=== PATIENT | female | born 1960 | race Caucasian/White ===

== ENCOUNTER 2020-02-26 17:40 | Emergency (ER) | payer BC ==
[~2020-02-26] VITALS: Ht 170.2 cm; Wt 52.2 kg
[2020-02-26 18:01] VITALS: BP_SYST 126
--- NOTE | 2020-02-26 18:07 | NUR ---
Patient triaged and placed in waiting room. VSS and patient appears in no acute distress at this time. Accompanied by SON, awaiting available bed, and MD notified of need for MSE.
[2020-02-26] MEDS ORDERED: KETOROLAC TROMETHAMINE 60 MG/2 ML VIAL IM ONE (18:15)
--- NOTE | 2020-02-26 19:55 | NUR ---
Patient to [facility] for evaluation. Side rails up.
--- NOTE | 2020-02-26 20:00 | NUR ---
Patient complaining of pain to lower back shooting down left leg since last night. History of sciatica. Pain 06/05. Patient is legally blind accompanied by son. No other complaints/injuries per patient or as noted. Will continue to monitor.
--- NOTE | 2020-02-26 20:10 | NUR ---
ER Dr. Floyd at bedside examining patient.
[2020-02-26] MEDS ORDERED: ONDANSETRON 4 MG ODT TAB PO ONE (20:15)
[2020-02-26] MEDS ORDERED: MORPHINE 4 MG/ML INJ. SYRINGE IM ONE (20:15)
[2020-02-26 21:20] VITALS: BP_SYST 116
--- NOTE | 2020-02-26 21:20 | NUR ---
Patient given written and verbal discharge instructions and verbalizes understanding. ER MD discussed with patient the results and treatment provided. Patient in stable condition. ID arm band removed. Rx of Naprosyn given. Patient educated on pain management and to follow up with PMD. Pain Scale 1/10 Opportunity for questions provided and answered. Medication side effect fact sheet provided.
== END 2020-02-26 21:20 | disposition home or self-care (01) ==
LOC: SED 17:40
DX: M54.5 Low back pain (principal); M54.10 Radiculopathy, site unspecified; F17.210 Nicotine dependence, cigarettes, uncomplicated; Z88.0 Allergy status to penicillin; Z88.5 Allergy status to narcotic agent
CPT/HCPCS: 96372; 99284; J1885; J2270; Q0162

== ENCOUNTER 2021-07-05 10:05 | Emergency (ER) | payer MEDICARE, MEDICAID, SELFPAY ==
[~2021-07-05] VITALS: Ht 170.2 cm; Wt 68.0 kg
[2021-07-05 10:55] VITALS: BP_SYST 119
[2021-07-05 11:00] LABS: BASOPHILS # (AUTO) 0.1 K/uL (0.0-0.2); EOSINOPHILS # (AUTO) 0.3 K/uL (0.0-0.4); EOSINOPHILS % (AUTO) 3.6 % (0.0-4.0); HEMATOCRIT 40.3 % (36-48); LYMPHOCYTES # (AUTO) 2.1 K/uL (1.0-5.5); LYMPHOCYTES % (AUTO) 29.3 % (20.5-51.5); MEAN CORPUSCULAR HEMOGLOBIN 32 pg (27-31); MEAN CORPUSCULAR HGB CONC 35 % (32-36); MEAN CORPUSCULAR VOLUME 92 fL (79.0-98.0); MONOCYTES # (AUTO) 0.5 K/uL (0.0-1.0); MONOCYTES % (AUTO) 7.4 % (1.7-9.3); NEUTROPHILS # (AUTO) 4.2 K/uL (1.8-7.7); NEUTROPHILS % (AUTO) 58.7 % (40.0-70.0); PLATELET COUNT (AUTO) 243 K/uL (130-430); RED CELL DISTRIBUTION WIDTH 14.1 % (9.0-15.0); WHITE BLOOD COUNT (AUTO) 7.2 K/uL (4.8-10.8)
[2021-07-05 11:19] LABS: CALCIUM 9.8 mg/dL (8.4-11.0); CREATININE 0.84 mg/dL (0.55-1.30); POTASSIUM 3.7 mmol/L (3.5-5.1)
[2021-07-05 11:21] LABS: INR 0.9 (0.8-1.2); PROTHROMBIN TIME 9.9 SECS (9.5-12.5)
[2021-07-05 11:24] LABS: TOTAL BILIRUBIN 0.3 mg/dL (0.0-1.0)
[2021-07-05] MEDS ORDERED: IPRATROPIUM BROM 0.5 MG/2.5 ML VIAL.NEB (ATROVENT) INH ONE (12:45)
[2021-07-05] MEDS ORDERED: ALBUTEROL SULFATE 0.083% 2.5 MG/3 ML VIAL.NEB INH ONE (12:45)
[2021-07-05] MEDS ORDERED: PRED20TA PO (12:55)
[2021-07-05] MEDS ORDERED: ALBU8.5H8 INH (12:55)
[2021-07-05 15:25] VITALS: BP_SYST 127
== END 2021-07-05 15:25 | disposition home or self-care (01) ==
LOC: SED 10:05
DX: R06.02 Shortness of breath (principal); Z88.0 Allergy status to penicillin; Z88.5 Allergy status to narcotic agent; Z20.822 Contact with and (suspected) exposure to COVID-19
CPT/HCPCS: 36415; 71045; 80053; 83880; 84484; 85025; 85610; 85730; 86710; 87426; 93005; 94640; 99285; J7613